=== PATIENT | female | born 1965 | race Caucasian/White ===

== ENCOUNTER 2018-05-26 09:33 | Emergency (ER) | payer OTHER ==
[~2018-05-26] VITALS: Ht 165.1 cm; Wt 123.6 kg
[2018-05-26 09:36] VITALS: Ht 165.1 cm; Wt 123.6 kg
[2018-05-26] MEDS ORDERED: CYMBALTA60 MG PO (09:37)
[2018-05-26] MEDS ORDERED: ZESTORETIC 20/21 TAB PO (09:38)
[2018-05-26] MEDS ORDERED: BUPROPION HCL100 MG PO (09:38)
[2018-05-26] MEDS ORDERED: POTASSIUM99 M1 PO (09:39)
[2018-05-26] MEDS ORDERED: MOBIC7.5 MG PO (09:39)
[2018-05-26] MEDS ORDERED: PRILOSEC2.5 MG PO (09:40)
[2018-05-26] MEDS ORDERED: LEVAQUIN750 MG PO (11:26)
[2018-05-26] MEDS ORDERED: TYLENOL W/CODEI1 TAB PO (11:26)
[2018-05-26 12:03] VITALS: BP 133/56
== END 2018-05-26 12:05 | disposition home or self-care (01) ==
LOC: D.ER 09:33
DX: S61.411A Laceration without foreign body of right hand, initial encounter (principal); W54.0XXA Bitten by dog, initial encounter; Y93.89 Activity, other specified; Y92.019 Unspecified place in single-family (private) house as the place of occurrence of the external cause; I10 Essential (primary) hypertension; K21.9 Gastro-esophageal reflux disease without esophagitis; F17.200 Nicotine dependence, unspecified, uncomplicated